=== PATIENT | female | born 1955 | race Caucasian/White ===

== ENCOUNTER 2023-12-13 22:39 | Emergency (ER) | payer OTHER, MEDICARE ==
[~2023-12-13] VITALS: Ht 165.1 cm; Wt 108.9 kg
[2023-12-13 22:51] VITALS: BP_SYST 153; PULSE 90; RESP 16; TEMP 97.2; O2SAT 96
[2023-12-14] MEDS ORDERED: OXYC-128 PO (00:45)
[2023-12-14] MEDS ORDERED: ACETAMINOPHEN 325 MG TABLET ONE (01:14)
[2023-12-14] MEDS: ACETAMINOPHEN 500 MG TABLET PO ONE (01:17)
[2023-12-14] MEDS: KETOROLAC TROMETHAMINE 30 MG VIAL IM ONE (01:19)
[2023-12-14 01:30] VITALS: BP_SYST 168; PULSE 93; RESP 16; TEMP 98.2; O2SAT 96
== END 2023-12-14 01:30 | disposition home or self-care (01) ==
LOC: SED 22:39
DX: S52.612A Displaced fracture of left ulna styloid process, initial encounter for closed fracture (principal); S52.502A Unspecified fracture of the lower end of left radius, initial encounter for closed fracture; W19.XXXA Unspecified fall, initial encounter; Y93.89 Activity, other specified; Y92.89 Other specified places as the place of occurrence of the external cause; Y99.8 Other external cause status
CPT/HCPCS: 99283; 73110; 29125; 96372; J1885